=== PATIENT | male | born 1975 | race Caucasian/White ===

== ENCOUNTER 2023-10-26 17:56 | Emergency (ER) | payer OTHER ==
[~2023-10-26] VITALS: Ht 182.9 cm; Wt 98.0 kg
[2023-10-26 17:59] VITALS: BP 133/93; PULSE 96; RESP 16; TEMP 98.3; O2SAT 100
[2023-10-26 19:12] LABS: BASOPHILS % 0.8 % (0.0-2.0); DIFFERENTIAL COMMENT 0; EOSINOPHILS % 0.7 % (0.0-5.0); HEMATOCRIT. 40.7 % (42.0-52.0); HEMOGLOBIN. 14.1 g/dL (14.0-18.0); LYMPHOCYTES % 17.4 % (20.0-50.0); MEAN CORPUSCULAR HEMOGLOBIN 37.4 pg (28.0-32.0); MEAN CORPUSCULAR HGB CONC 34.5 g/dL (31.0-37.0); MEAN CORPUSCULAR VOLUME 108.2 fL (80.0-94.0); MEAN PLATELET VOLUME 7.5 fl (7.4-10.4); MONOCYTES % 9.6 % (2.0-8.0); NEUTROPHILS % 71.5 % (40.0-76.0); PLATELET 201 x1000/uL (130-400); RED BLOOD CELL COUNT 3.76 mill/uL (4.7-6.1); RED CELL DISTRIBUTION WIDTH 13.7 % (11.6-14.6); WHITE BLOOD COUNT 6.6 x1000/uL (4.5-11.0)
[2023-10-26 19:31] LABS: ALANINE AMINOTRANSFERASE 102 IU/L (10-49); ALBUMIN 4.9 g/dL (3.2-4.8); ASPARTATE AMINOTRANSFERASE 194 IU/L (<34); BILIRUBIN TOTAL 1.3 mg/dL (0.1-1.0); CALCIUM 9.3 mg/dL (8.7-10.4); CARBON DIOXIDE 22 mEq/L (21-32); CHLORIDE 108 mEq/L (98-107); CREATININE 0.9 mg/dL (0.6-1.3); GLUCOSE 111 mg/dL (70-105); POTASSIUM 3.8 mEq/L (3.5-5.1); PROTEIN TOTAL 8.3 g/dL (6.0-8.3); SODIUM 140 mEq/L (136-145); UREA NITROGEN BLOOD 28 mg/dL (9-23)
== END 2023-10-27 01:23 | disposition left against medical advice (07) ==
LOC: ER 17:56
DX: K43.9 Ventral hernia without obstruction or gangrene (principal); I10 Essential (primary) hypertension
CPT/HCPCS: 36415; 80053; 85025; 99283

== ENCOUNTER 2025-03-21 18:50 | Emergency (ER) | payer OTHER ==
[~2025-03-21] VITALS: Ht 185.4 cm; Wt 100.0 kg
[2025-03-21 18:52] VITALS: O2SAT 98
[2025-03-21] MEDS: LORAZEPAM 2MG/ML UD SYRINGE IM SCH (19:31)
[2025-03-21] MEDS: DIPHENHYDRAMINE 50MG/ML VIAL IM ONE (19:31)
[2025-03-21 20:09] LABS: BASOPHILS % 0.4 % (0.0-2.0); EOSINOPHILS % 0.1 % (0.0-5.0); HEMATOCRIT. 39.3 % (42.0-52.0); HEMOGLOBIN. 13.2 g/dL (14.0-18.0); LYMPHOCYTES % 9.6 % (20.0-50.0); MEAN PLATELET VOLUME 7.1 fl (7.4-10.4); MONOCYTES % 6.6 % (2.0-8.0); NEUTROPHILS % 83.3 % (40.0-76.0); PLATELET 239 x1000/uL (130-400); RED BLOOD CELL COUNT 3.74 mill/uL (4.7-6.1); RED CELL DISTRIBUTION WIDTH 14.1 % (11.6-14.6)
[2025-03-21 20:22] LABS: UREA NITROGEN BLOOD 25 mg/dL (9-23)
[2025-03-21 20:23] LABS: ETHANOL BLOOD 132 mg/dL (<10)
[2025-03-21 20:39] LABS: CREATININE 1.7 mg/dL (0.6-1.3)
[2025-03-22 07:08] LABS: *AMPHETAMINES SCREEN URINE PRESUMPTIVE POSITIVE (NEGATIVE); *BARBITURATES SCREEN URINE NEGATIVE (NEGATIVE); *BENZODIAZEPINES SCREEN URINE NEGATIVE (NEGATIVE); *COCAINE SCREEN URINE PRESUMPTIVE POSITIVE (NEGATIVE); CANNABINOID URINE SCREEN PRESUMPTIVE POSITIVE (NEGATIVE); ECSTASY MDMA SCREEN URINE CONF.TEST INDICATED (NEGATIVE); METHADONE URINE SCREEN NEGATIVE (NEGATIVE); OPIATES URINE SCREEN NEGATIVE (NEGATIVE); PHENCYCLIDINE URINE SCREEN PRESUMTIVE POSITIVE (NEGATIVE)
[2025-03-22] MEDS ORDERED: HYDROXYZINE 25MG TABLET PO PRN (09:30)
[2025-03-22] MEDS: DULOXETINE HCL 30MG DR CAPSULE PO SCH (09:51)
[2025-03-22] MEDS: TRAZODONE HCL 50MG TABLET PO SCH (21:22)
[2025-03-23 23:38] LABS: CLARITY URINE CLEAR (CLEAR); COLOR URINE YELLOW (YELLOW); GLUCOSE URINE NEGATIVE (NEGATIVE); KETONES URINE NEGATIVE (NEGATIVE); LEUKOCYTE ESTERASE URINE NEGATIVE (NEGATIVE); NITRITE URINE NEGATIVE (NEGATIVE); OCCULT BLOOD URINE NEGATIVE (NEGATIVE); PH URINE 6.5 (4.5-8.0); PROTEIN URINE NEGATIVE (NEGATIVE); SPECIFIC GRAVITY URINE 1.012 (1.005-1.030); UROBILINOGEN URINE 0.2 E.U./dL (0.2-1.0)
[2025-03-24 18:52] VITALS: BP 128/76; PULSE 79; RESP 16; TEMP 36.6; O2SAT 99
== END 2025-03-24 18:56 | disposition home or self-care (01) ==
LOC: ER 18:50
DX: F10.129 Alcohol abuse with intoxication, unspecified (principal); I10 Essential (primary) hypertension; Z79.899 Other long term (current) drug therapy; Z20.822 Contact with and (suspected) exposure to COVID-19; F31.9 Bipolar disorder, unspecified; F43.10 Post-traumatic stress disorder, unspecified; F19.10 Other psychoactive substance abuse, uncomplicated; Y90.6 Blood alcohol level of 120-199 mg/100 ml
CPT/HCPCS: 80305; 80048; 81003; 80307; 80329; 80320; 85025; 36415; 96372; 99285; 87426; J1200; J2060; G0480